=== PATIENT | female | born 1975 | race Caucasian/White ===

== ENCOUNTER → 2019-05-19 16:03 | Outpatient (CLI) | payer MEDICARE, SELFPAY ==
--- NOTE | 2019-05-19 16:13 | XR_ITS ---
PROCEDURE: XR ANKLE LT MIN 3V CLINICAL INDICATION: LEFT ankle fracture, xray IN SPLINT Follow-up fracture COMPARISON: XR TIBIA FIBULA LT 2V from 05/14/2019 FINDINGS: There is a nondisplaced fracture involving the distal fibula. The ankle mortise however appears slightly widened with slightly widened distal tibial fibular space. Syndesmotic injury is a consideration. Talar dome has an unremarkable appearance as does the medial malleolar region. There is a bone plate present at the 5th metatarsal. Persistent soft tissue swelling noted medially and laterally IMPRESSION: No change nondisplaced distal fibular fracture. Mild widening of the tibiofibular space and ankle mortise. Dictated by: Ganesh Lucio MD 05/19/2019 16:35 Electronically signed by Ganesh Lucio MD in [place] 05/19/2019 16:35
== END ==
PROVIDERS: Visit Provider Orthopaedic Surgery
DX: S82.892A Other fracture of left lower leg, initial encounter for closed fracture (principal)
CPT/HCPCS: 73610

== ENCOUNTER → 2019-06-01 16:22 | Outpatient (CLI) | payer MEDICARE, SELFPAY ==
--- NOTE | 2019-06-01 16:30 | XR_ITS ---
PROCEDURE: XR ANKLE LT MIN 3V CLINICAL INDICATION: sp ORIF LT ankle, dos 05/20/2019 COMPARISON: XR ANKLE LT 2V from 05/20/2019 FINDINGS: Status post ORIF distal fibula with lateral bone plate with multiple screws and an additional screw with translucent fixator into the distal tib fib. There is good alignment. The ankle mortise is preserved. There has been prior ORIF of the 5th metatarsal. IMPRESSION: Good alignment status post ORIF distal fibula Dictated by: Ganesh Lucio MD 06/01/2019 18:35 Electronically signed by Ganesh Lucio MD in [place] 06/01/2019 18:35
== END ==
PROVIDERS: Visit Provider Orthopaedic Surgery
DX: S82.892A Other fracture of left lower leg, initial encounter for closed fracture (principal); Z48.89 Encounter for other specified surgical aftercare
CPT/HCPCS: 73610; 87070; 87075; 87077; 87186; 87205

== ENCOUNTER → 2019-06-10 15:29 | Outpatient (CLI) | payer MEDICARE, SELFPAY ==
--- NOTE | 2019-06-10 15:39 | XR_ITS ---
PROCEDURE: XR ANKLE LT MIN 3V CLINICAL INDICATION: sp LT ankle ORIF, cast applied Follow-up ORIF left ankle COMPARISON: XR ANKLE LT MIN 3V from 05/19/2019 XR ANKLE LT MIN 3V from 06/01/2019 FINDINGS: Good alignment status post ORIF with lateral fibular bone plate and translucent fixator at the tib fib region. The ankle mortise is preserved. The talar dome has an unremarkable appearance. There has been prior ORIF of the 5th metatarsal. IMPRESSION: Good alignment status post ORIF distal tib fib Dictated by: Ganesh Lucio MD 06/10/2019 16:23 Electronically signed by Ganesh Lucio MD in [place] 06/10/2019 16:23
== END ==
PROVIDERS: Visit Provider Orthopaedic Surgery
DX: Z48.89 Encounter for other specified surgical aftercare (principal); M25.572 Pain in left ankle and joints of left foot
CPT/HCPCS: 73610